=== PATIENT | female | born 1995 | race African-American/Black ===

== ENCOUNTER 2017-03-02 11:11 | Emergency (ER) | payer OTHER ==
--- NOTE | ~2017-03-02 | US61 ---
[facility] A Service [facility] RADIOLOGY TEXT RESULTS PATIENT: ÓSCAR MINOR LOCATION: [facility] : [birth year] UNIT #: [id number] AGE: [address]: Rosana Day SEX: F ORDER DR: [id number] [id number] [facility]. [place], [place] [address] [id number] MR#: [id number] Acc #: [id number] NAME: ÓSCAR MINOR : 1995 SEX: F STUDY DATE/TIME: 03/02/2017 14:07 UNIT: [facility] ROOM: STUDY DESCRIPTION: US /Mat <14Wk / Attending Physician: Rosana Day Pa-C Ordering Physician: Chacorta Kidd M.D. Primary Care Physician: [facility] MEDICAL IMAGING REPORT This report is preliminary unless electronic signature is present EXAM Early ultrasound HISTORY Early with cramping, spotting for one day. FINDINGS Transvaginal imaging was performed. The uterus is about 9.5 cm in length and 4 cm in AP dimension. It contains a single gestational sac with a yolk sac. No pole or heartbeat is identified. The estimated gestational age is 5 years and 5 days based on gestational sac size. Both ovaries are normal and have normal flow. IMPRESSION 1. The gestational sac is seen within the endometrial cavity and it contains a yolk sac. No pole or heartbeat is identified. There is a tiny amount of fluid adjacent to the gestational sac measuring just a few mm in maximum dimension. This could represent a blighted ovum or a very early . Based on gestational sac size this is a 5 week 5 day . 2. Both ovaries appear normal. Dictated by... South Hernandez M.D. THIS IS AN ELECTRONICALLY VERIFIED REPORT South Hernandez M.D. at 03/03/2017 7:37 AM JORGE/adrian [facility] A Service of [facility] RADIOLOGY TEXT RESULTS PATIENT: ÓSCAR MINOR LOCATION: [facility] : 94 UNIT #: [id number] AGE: [address]: Rosana Day SEX: F ORDER DR: TD: 03/02/2017 22:27 JOB #: [id number] MEDICAL IMAGING REPORT Page 1 of 1 COPY
[2017-03-02 12:22] LABS: URINE SOURCE CLEAN CATCH
[2017-03-02 12:28] LABS: BASOPHIL% 0.4 % (0-2.5); EOSINOPHIL# 0.1 X10e3 (0-0.7); EOSINOPHIL% 1.1 % (0.0-7.0); HEMATOCRIT 35.8 % (35.0-45.0); HEMOGLOBIN 11.2 gm/dL (12.0-16.0); LYMPHOCYTE# 3.1 X10e3 (1.0-3.5); LYMPHOCYTE% 37.9 % (17.0-45.0); MEAN CELL VOLUME 71.6 FL (83-96); MEAN CORPUSCULAR HEMOGLOBIN 22.4 PG (28-34); MEAN CORPUSCULAR HGB CONC 31.3 g/dL (30-36); MEAN PLATELET VOLUME 8.2 FL (6.5-11.5); MONOCYTE# 0.6 X10e3 (0-1.0); MONOCYTE% 7.6 % (3.0-12.0); NEUTROPHIL# 4.3 X10e3 (1.5-7.1); PLATELET COUNT 301 X10e3 (140-420); RED BLOOD COUNT 4.99 X10e (3.90-5.30); RED CELL DISTRIBUTION WIDTH 14.4 % (11.0-15.5); WHITE BLOOD COUNT 8.2 X10e3 (4.0-10.5)
[2017-03-02 12:31] LABS: URINE APPEARANCE TURBID; URINE BILIRUBIN NEG (NEG); URINE BLOOD NEG (NEG); URINE COLOR DK YELLOW; URINE GLUCOSE NEG (NEG); URINE KETONE 1+ (NEG); URINE LEUKOCYTE ESTERASE NEG (NEG); URINE NITRATE NEG (NEG); URINE PROTEIN NEG (NEG); URINE SPECIFIC GRAVITY 1.026 (1.003-1.035)
[2017-03-02 12:32] LABS: DIFF IND NO
[2017-03-02 12:36] LABS: CULTURE INDICATED? NO
[2017-03-02 12:52] LABS: ALBUMIN SERUM 4.4 g/dL (3.5-5.0); BILIRUBIN, DIRECT 0.2 mg/dL (0.0-0.2); BILIRUBIN,INDIRECT 1.5 mg/dL (0.0-0.9); BILIRUBIN,TOTAL 1.7 mg/dL (0.2-2.0); BUN/CREATININE RATIO 13.33; CALCIUM SERUM 9.2 mg/dL (8.4-10.2); CREATININE SERUM 0.6 mg/dL (0.6-1.4); POTASSIUM 3.7 mmol/L (3.5-5.1); PROTEIN TOTAL SERUM 7.7 g/dL (6.0-8.3)
[2017-03-03 23:07] LABS: CHLAMYDIA TRACH Not Detected (Not Detected); N GONOR Not Detected (Not Detected)
== END 2017-03-02 15:40 | disposition home or self-care (01) ==
LOC: CED 11:11 → CFTX 11:11
PROVIDERS: Physician Assistant
DX: O20.0 Threatened abortion (principal); J45.909 Unspecified asthma, uncomplicated; O99.511 Diseases of the respiratory system complicating pregnancy, first trimester; Z3A.01 Less than 8 weeks gestation of pregnancy; O99.331 Smoking (tobacco) complicating pregnancy, first trimester; F17.200 Nicotine dependence, unspecified, uncomplicated
CPT/HCPCS: 36415; 76801; 80048; 80076; 81003; 84702; 84703; 85025; 87220; 87491; 87591; 87808; 87905; 99284

== ENCOUNTER 2017-04-01 18:45 | Emergency (ER) | payer OTHER ==
[~2017-04-01] VITALS: Ht 160 cm; Wt 45.4 kg
--- NOTE | ~2017-04-01 | CT71 ---
[facility] A Service of [facility] RADIOLOGY TEXT RESULTS PATIENT: ÓSCAR MINOR LOCATION: [facility] : [birth year] UNIT #: [id number] AGE: [address]: Chemo Harman MD SEX: F ORDER DR: [id number] [facility] [address] [place], [place] [address] [id number] E MR#: [id number] Acc #: [id number] NAME: ÓSCAR MINOR : 1995 SEX: F STUDY DATE/TIME: 04/01/2017 20:22 UNIT: [facility] ROOM: STUDY DESCRIPTION: CT Head Wo Contrast Attending Physician: Dino Hraman M.D. Ordering Physician: Ed Doctor [id number] [facility] Primary Care Physician: [facility] MEDICAL IMAGING REPORT This report is preliminary unless electronic signature is present EXAM CT brain without contrast HISTORY Severe headache, right side today. Dizzy. TECHNIQUE This CT exam was performed with one or more of the following radiation dose reduction techniques: automatic exposure control, adjustment of mA and/or kV according to patient size, and iterative reconstruction. FINDINGS Axial noncontrast images were obtained from the skull base to the vertex. Ventricular size and configuration are normal. There is no evidence of acute infarct or hemorrhage. There are no extra-axial fluid collections. No mass lesion or mass effect is seen. There are no skull fractures. IMPRESSION Normal noncontrast head CT. Dictated by... Toni Arguelles M.D. THIS IS AN ELECTRONICALLY VERIFIED REPORT Toni Arguelles M.D. at 04/02/2017 12:07 PM Tre TD: 04/02/2017 10:58 JOB #: [id number] MEDICAL IMAGING REPORT Page 1 of 1 COPY
[2017-04-01 19:20] LABS: BASOPHIL% 0.3 % (0-2.5); EOSINOPHIL# 0.2 X10e3 (0-0.7); EOSINOPHIL% 1.3 % (0.0-7.0); HEMOGLOBIN 10.4 gm/dL (12.0-16.0); LYMPHOCYTE# 4.7 X10e3 (1.0-3.5); LYMPHOCYTE% 40.4 % (17.0-45.0); MEAN CELL VOLUME 70.3 FL (83-96); MEAN CORPUSCULAR HEMOGLOBIN 22.9 PG (28-34); MEAN CORPUSCULAR HGB CONC 32.6 g/dL (30-36); MEAN PLATELET VOLUME 7.7 FL (6.5-11.5); MONOCYTE# 0.6 X10e3 (0-1.0); MONOCYTE% 5.4 % (3.0-12.0); NEUTROPHIL# 6.1 X10e3 (1.5-7.1); NEUTROPHIL% 52.6 % (40-75); PLATELET COUNT 305 X10e3 (140-420); RED BLOOD COUNT 4.55 X10e (3.90-5.30); RED CELL DISTRIBUTION WIDTH 14.6 % (11.0-15.5); WHITE BLOOD COUNT 11.5 X10e3 (4.0-10.5)
[2017-04-01 19:22] LABS: DIFF IND NO
[2017-04-01 19:48] LABS: CALCIUM SERUM 9.2 mg/dL (8.4-10.2); CREATININE SERUM 0.5 mg/dL (0.6-1.4); GLOM FILT RATE Estimated 159.2 mL/min (>60); POTASSIUM 3.9 mmol/L (3.5-5.1)
== END 2017-04-01 21:19 | disposition home or self-care (01) ==
LOC: CED 18:45
PROVIDERS: Emergency Medicine
DX: O99.89 Other specified diseases and conditions complicating pregnancy, childbirth and the puerperium (principal); R51 Headache; O99.331 Smoking (tobacco) complicating pregnancy, first trimester; F17.210 Nicotine dependence, cigarettes, uncomplicated
CPT/HCPCS: 36415; 70450; 80048; 84703; 85025; 96374; 96375; 99284; J2270; J2550

== ENCOUNTER 2017-04-17 16:54 | Emergency (ER) | payer OTHER ==
[~2017-04-17] VITALS: Ht 152.4 cm; Wt 48.5 kg
== END 2017-04-17 19:34 | disposition home or self-care (01) ==
LOC: CFTX 16:54 → CED 16:54 → CFTX 18:44
DX: H92.01 Otalgia, right ear (principal); J02.9 Acute pharyngitis, unspecified; F17.210 Nicotine dependence, cigarettes, uncomplicated
CPT/HCPCS: 87651; 96372; 99283; J0696